=== PATIENT | female | born 1995 | race Hispanic/Latino ===

== ENCOUNTER → 2016-04-10 | Outpatient (REF) | payer OTHER ==
[~2016-04-10] MED LIST: PRENTAB55 PO
== END ==
LOC: M LAB REF 17:33
PROVIDERS: ATTEND Advanced Practice Midwife
DX: Z34.83 Encounter for supervision of other normal pregnancy, third trimester (principal)

== ENCOUNTER 2016-04-30 05:44 | Inpatient (IN) | payer OTHER ==
[2016-04-30] VITALS (36 sets, daily range): BP systolic 103–140; BP diastolic 57–95
[~2016-04-30] VITALS: Ht 157.5 cm; Wt 58.0 kg
[2016-04-30] MEDS ORDERED: LACTATED RINGER'S 1000 ML IV STA (06:07)
[2016-04-30] MEDS ORDERED: PENICILLIN G POTASSIUM IV 5 MU in D5W MINI-BAG PLUS 100 ML IV STA (06:07)
[2016-04-30] MEDS: LR 1,000 ML IV SCH ×2 (06:44→08:35)
[2016-04-30 07:09] LABS: MEAN CORPUSCULAR HEMOGLOBIN 24.9 pg (27.0-33.0); MEAN CORPUSCULAR HGB CONC 32.8 g/dl (32.0-36.5); MEAN CORPUSCULAR VOLUME 75.9 fl (80.0-96.0); RED CELL DISTRIBUTION WIDTH 16.4 % (11.5-14.5)
[2016-04-30] MEDS ORDERED: FENTANYL 2MCG/ML ROPIVACAINE 0.2% NACL 250 ML CADD As Ordered ONE (07:21)
[2016-04-30] MEDS ORDERED: SODIUM CHLORIDE NASAL 0.65% SPRAY BTL (OCEAN) PRN (07:45)
[2016-04-30] MEDS ORDERED: ONDANSETRON 4MG/2ML VIAL (J2405) IV PRN (08:45)
[2016-04-30] MEDS ORDERED: EPIDURAL/PCA KEYS XX PRN (08:45)
[2016-04-30] MEDS ORDERED: LACTATED RINGER'S 1000 ML IV PRN (08:45)
[2016-04-30] MEDS ORDERED: ePHEDrine SULFATE 25 MG/5 ML(5MG/ML) SYRINGE IV PRN (08:45)
[2016-04-30] MEDS ORDERED: diphenhydrAMINE INJ 50MG/ML VIAL (J1200) IV PRN (08:45)
[2016-04-30] MEDS ORDERED: FENTANYL/ROPIVACAINE/NACL CADD 250 ML EPIDURAL SCH (08:45)
[2016-04-30] MEDS ORDERED: EPIDURAL COMMENT XX SCH (08:45)
[2016-04-30] MEDS ORDERED: REFRIGERATOR IV KEYS XX PRN (08:45)
[2016-04-30] MEDS ORDERED: NALOXONE INJ 0.4 MG/1 ML VIAL (J2310) IV PRN (08:45)
[2016-04-30] MEDS ORDERED: OXYTOCIN 30 UNITS IN 0.9% NaCl 500ML IV BAG (J2590) As Ordered ONE (09:10)
--- NOTE | 2016-04-30 09:59 | HPE ---
DATE OF ADMISSION: 04/30/2016 20-year-old 1, estimated date of delivery 05/06/2016 here at 39 weeks-1 day with reports of contractions through the weekend, stronger since O200 this morning. Reports light bloody show. Denies loss of fluid. Fetus is active. Last normal menstrual period 07/31/2015 with an estimated date of delivery 05/06/2016. Sonogram at 11 weeks confirmed date of May 07, 2016. Anatomy scan within normal limits. Appropriate care. ALLERGIES: She is allergic to AZITHROMYCIN. PAST MEDICAL-SURGICAL HISTORY: 1. Systemic lupus erythematosus (SLE). 2. Non-Hodgkin's lymphoma. FAMILY HISTORY: Diabetes, epilepsy and Down syndrome. SOCIAL HISTORY: Single, partner is supportive. Denies tobacco, alcohol, drugs or abuse. OBJECTIVE: Prepregnancy weight 120, total weight gain 12 pounds. O positive, antibody negative, rubella immune, VDRL, hepatitis B, hepatitis C, HIV, gonorrhea: All negative. Chlamydia was positive in October, test of cure was negative in November. 1-hour glucose 90 and group B Streptococcus is positive. VITAL SIGNS: Vital signs are stable. She is crying with contractions. Heart rate is regular. Breathing hard with contractions. ABDOMEN: Abdomen is soft, gravid, contractions 2-4 minutes apart and moderate. heart 145, moderate variability with accelerations. Cervix per nursing exam 4-5 cm, -1 station. ASSESSMENT: 1. Primipara at 39 weeks. 2. Active labor. 3. Category 1 tracing. PLAN: Admit. The patient is requesting epidural augment as needed, anticipate normal spontaneous vaginal .
[2016-04-30] MEDS ORDERED: PENICILLIN G POTASSIUM IV 2.5 MU in D5W 100 ML IV SCH (10:00)
[2016-04-30] MEDS ORDERED: OXYTOCIN DRIP 30 UNITS in APPROPRIATE DILUENT 1 EA IV SCH (13:15)
[2016-04-30] MEDS ORDERED: METHYLERGONOVINE MALEATE 0.2 MG/ML VIAL (J2210) As Ordered ONE (14:10)
[2016-04-30] MEDS ORDERED: METHYLERGONOVINE MALEATE 0.2 MG/ML VIAL (J2210) IM STA (14:13)
[2016-04-30 14:27] LABS: CORD GAS ABE V -4.8; CORD GAS HCO3 V 23.4 MEQ/L; CORD GAS O2 SAT V 29.8 %; CORD GAS PCO2 V 55.8 mmHg; CORD GAS PH V 7.241 UNITS; CORD GAS PO2 V 16.9 mmHg; CORD GAS SBC V 18.9 MEQ/L; CORD GAS TCO2 V 25.1 MEQ/L
[2016-04-30 14:28] LABS: CORD GAS ABE A -6.7; CORD GAS HCO3 A 19.9 MEQ/L; CORD GAS O2 SAT A 64.4 %; CORD GAS PCO2 A 43.5 mmHg; CORD GAS PH A 7.279 UNITS; CORD GAS PO2 A 37.3 mmHg; CORD GAS SBC A 18.4 MEQ/L; CORD GAS TCO2 A 21.3 MEQ/L
[2016-04-30] MEDS ORDERED: RHOGAM 300 MCG (1500 IU) INJ (J2790) IM SCH (14:45)
[2016-04-30] MEDS ORDERED: MOM 30ML SUSPENSION UDC PO PRN (14:45)
[2016-04-30] MEDS ORDERED: MEASLES,MUMPS,RUBELLA VACCINE INJ (MMR-II) (90707) SC SCH (14:45)
[2016-04-30] MEDS ORDERED: ACETAMINOPHEN 500 MG TAB PO PRN (14:45)
[2016-04-30] MEDS ORDERED: DIBUCAINE 1% OINTMENT 30GM TOP PRN (14:45)
[2016-04-30] MEDS ORDERED: DOCUSATE SODIUM 100 MG CAP PO PRN (14:45)
[2016-04-30] MEDS ORDERED: ANUSOL HC CREAM 30GM TOP PRN (14:45)
--- NOTE | 2016-04-30 15:29 | DN ---
DATE OF SERVICE: 04/30/2016 Utilized epidural for coping. Artificial rupture of membranes. Clear fluid at 1107 hours. Fully dilated 1225 hours. Variable and occasional late decelerations treated with position change and oxygen via mask. Pitocin augmentation when presenting +3 station to increase uterine strength and urge to push. heart decelerations 80s to 90s. Viable female delivered right occiput anterior (RON) at 1400 hours. Spontaneous respirations with stimulation. Transitioned on maternal abdomen. Cord doubly clamped and cut once pulsations ceased. scores of 9 and 9. Cord gases were obtained. Placenta Ayala intact, but with shredded membranes at 1407 hours. Fundus firmed with massage and intravenous (IV) Pitocin bolus. Methergine 0.2 mg intramuscularly (IM) given for long trailing membranes. Perineum intact. Left labial abrasion repaired with interrupted 3-0 Vicryl Rapide suture. ESTIMATED BLOOD LOSS: 150 mL Sponge, sharp and instrument count correct. Infant weight is pending. Mom and baby doing well. Dr. Louis Dalal assisted with delivery. [facility]
[2016-04-30] MEDS: IBUPROFEN 800 MG TAB PO PRN (15:33)
[2016-04-30] MEDS: METHYLERGONOVINE MALEATE 0.2 MG TAB PO SCH (20:42)
[2016-04-30] MEDS: PRENATAL VITAMIN TAB PO SCH (20:42)
[2016-05-01] MEDS: METHYLERGONOVINE MALEATE 0.2 MG TAB PO SCH ×4 (03:00→21:04)
[2016-05-01] MEDS: IBUPROFEN 800 MG TAB PO PRN ×2 (03:06→17:30)
[2016-05-01 06:16] VITALS: BP 115/67
[2016-05-01] MEDS: PRENATAL VITAMIN TAB PO SCH (08:13)
[2016-05-01 18:00] VITALS: BP 115/61
[2016-05-02] MEDS: METHYLERGONOVINE MALEATE 0.2 MG TAB PO SCH ×2 (02:00→08:00)
[2016-05-02] MEDS: PRENATAL VITAMIN TAB PO SCH (09:15)
[2016-05-02 10:00] VITALS: BP 119/73
[2016-05-02 14:00] VITALS: BP 115/73
[2016-05-02] MEDS ORDERED: PRENTAB9 PO (17:29)
[2016-05-02] MEDS ORDERED: ACET50TA PO (17:29)
[2016-05-02] MEDS ORDERED: IBUP-1114 PO (17:29)
== END 2016-05-02 19:00 | disposition home or self-care (01) | DRG 560 ==
LOC: M LDO 05:44 → M LDI 06:06 → M OBS 16:40
PROVIDERS: ADMIT Obstetrics & Gynecology; ATTEND Obstetrics & Gynecology
PROC: 10E0XZZ Delivery of Products of Conception, External Approach (ICD-10-PCS; principal; 2016-04-30)
PROC: 0HQ9XZZ Repair Perineum Skin, External Approach (ICD-10-PCS; 2016-04-30)
PROC: 10907ZC Drainage of Amniotic Fluid, Therapeutic from Products of Conception, Via Natural or Artificial Opening (ICD-10-PCS; 2016-04-30)
DX: O26.893 Other specified pregnancy related conditions, third trimester (principal); M32.9 Systemic lupus erythematosus, unspecified; O99.824 Streptococcus B carrier state complicating childbirth; Z83.3 Family history of diabetes mellitus; Z37.0 Single live birth; Z3A.39 39 weeks gestation of pregnancy; Z82.79 Family history of other congenital malformations, deformations and chromosomal abnormalities; Z88.3 Allergy status to other anti-infective agents; Z82.0 Family history of epilepsy and other diseases of the nervous system; Z85.72 Personal history of non-Hodgkin lymphomas; O70.0 First degree perineal laceration during delivery

== ENCOUNTER → 2016-07-31 | Outpatient (CLI) | payer OTHER ==
[~2016-07-31] MED LIST changes: +ACET50TA PO; +AVEL1TAB PO; +IBUP-1114 PO; +PRENTAB9 PO
[2016-07-31 14:14] LABS: MEAN CORPUSCULAR HEMOGLOBIN 25.5 pg (27.0-33.0); MEAN CORPUSCULAR HGB CONC 32.8 g/dl (32.0-36.5); MEAN CORPUSCULAR VOLUME 77.6 fl (80.0-96.0); RED CELL DISTRIBUTION WIDTH 16.4 % (11.5-14.5)
[2016-07-31 14:40] LABS: FREE T4 1.05 NG/DL (0.78-1.33)
[2016-08-01 08:01] LABS: WHITE BLOOD COUNT 5.3 K/mm3 (4.0-10.0)
== END ==
LOC: M LAB 13:38
PROVIDERS: ATTEND Advanced Practice Midwife
DX: R63.4 Abnormal weight loss (principal)

== ENCOUNTER 2016-08-05 09:51 | Emergency (ER) | payer OTHER ==
[~2016-08-05] VITALS: Ht 157.5 cm; Wt 49.9 kg
[~2016-08-05 09:51] MED LIST changes: -AVEL1TAB PO
[2016-08-05] MEDS ORDERED: ALBUTEROL 90 MCG/ACT 8GM HFA INHALER INH ONE (10:45)
--- NOTE | 2016-08-05 11:15 | REP ---
Chest two views HISTORY: Cough Comparison: None The lungs are clear. The heart is normal in size. The pulmonary vasculature is normal in appearance. The bony structure is intact. IMPRESSION: No acute disease. Signed by Toby Cobb MD 08/05/2016 11:06 A
[2016-08-05] MEDS ORDERED: AVEL1TAB PO (11:21)
[2016-08-05 11:30] VITALS: BP 115/68
== END 2016-08-05 11:31 | disposition home or self-care (01) ==
LOC: M ED 10:26
DX: J20.9 Acute bronchitis, unspecified (principal); Z85.72 Personal history of non-Hodgkin lymphomas; Z88.1 Allergy status to other antibiotic agents

== ENCOUNTER 2016-11-07 09:44 | Emergency (ER) | payer OTHER ==
[~2016-11-07] VITALS: Ht 157.5 cm; Wt 47.1 kg
[~2016-11-07 09:44] MED LIST changes: +AVEL1TAB3 PO
[2016-11-07 09:45] VITALS: BP 131/75
[2016-11-07] MEDS ORDERED: NITR100C39 PO (10:19)
== END 2016-11-07 10:23 | disposition home or self-care (01) ==
LOC: M ED 09:44
DX: N39.0 Urinary tract infection, site not specified (principal)

== ENCOUNTER → 2016-11-12 | Outpatient (CLI) | payer OTHER ==
[~2016-11-12] MED LIST changes: +NITR100C39 PO
[2016-11-12 18:22] LABS: THYROXINE (T4) 11.6 UG/DL (6.0-11.6)
== END ==
LOC: M LAB 15:46
PROVIDERS: ATTEND Advanced Practice Midwife
DX: R63.4 Abnormal weight loss (principal)

== ENCOUNTER → 2016-11-29 | Outpatient (REF) | payer OTHER ==
[2016-11-29 16:12] LABS: MEAN CORPUSCULAR HEMOGLOBIN 24.8 pg (27.0-33.0); MEAN CORPUSCULAR HGB CONC 32.8 g/dl (32.0-36.5); MEAN CORPUSCULAR VOLUME 75.6 fl (80.0-96.0); RED CELL DISTRIBUTION WIDTH 15.4 % (11.5-14.5); WHITE BLOOD COUNT 6.8 K/mm3 (4.0-10.0)
== END ==
LOC: M SFHCPLAZ 14:29
PROVIDERS: ATTEND Family Medicine
DX: D64.9 Anemia, unspecified (principal)

== ENCOUNTER → 2016-11-30 | Outpatient (REF) | payer OTHER ==
[2016-11-30 13:22] LABS: MEAN CORPUSCULAR HEMOGLOBIN 24.9 pg (27.0-33.0); MEAN CORPUSCULAR HGB CONC 32.8 g/dl (32.0-36.5); MEAN CORPUSCULAR VOLUME 76.1 fl (80.0-96.0); RED CELL DISTRIBUTION WIDTH 15.4 % (11.5-14.5); WHITE BLOOD COUNT 4.5 K/mm3 (4.0-10.0)
== END ==
LOC: M SFHCPLAZ 11:29
PROVIDERS: ATTEND Family Medicine
DX: D64.9 Anemia, unspecified (principal)

== ENCOUNTER → 2016-12-03 | Outpatient (REF) | payer OTHER ==
[2016-12-03 12:42] LABS: PERCENT SATURATION 5.4 % (13.2-45.0)
== END ==
LOC: M SFHCPLAZ 10:34
PROVIDERS: ATTEND Family Medicine
DX: D64.9 Anemia, unspecified (principal)

== ENCOUNTER → 2017-04-18 | Outpatient (REF) | payer OTHER ==
[2017-04-18 21:03] LABS: CHLAMYDIA DNA AMPLIFICATION NEGATIVE (NEGATIVE); GC DNA AMPLIFICATION NEGATIVE (NEGATIVE)
== END ==
LOC: M LAB REF 18:43
DX: Z11.3 Encounter for screening for infections with a predominantly sexual mode of transmission (principal)

== ENCOUNTER → 2017-06-11 | Outpatient (REF) | payer OTHER ==
[2017-06-11 11:10] LABS: HEMATOCRIT 34.6 % (36.0-47.0); HEMOGLOBIN 11.2 g/dl (12.0-16.0); MEAN CORPUSCULAR HEMOGLOBIN 24.7 pg (27.0-33.0); MEAN CORPUSCULAR HGB CONC 32.4 g/dl (32.0-36.5); MEAN CORPUSCULAR VOLUME 76.2 fl (80.0-96.0); PLATELET COUNT, AUTOMATED 280 10^3/uL (150-450); RED BLOOD COUNT 4.54 10^6/uL (4.00-5.40); RED CELL DISTRIBUTION WIDTH 15.3 % (11.5-14.5); WHITE BLOOD COUNT 4.6 10^3/uL (4.0-10.0)
[2017-06-11 11:16] LABS: IRON (FE) 36 UG/DL (50-170)
[2017-06-11 11:16] LABS: FERRITIN 3 NG/ML (8-252)
== END ==
LOC: M SFHCPLAZ 07:53
DX: D50.9 Iron deficiency anemia, unspecified (principal)
CPT/HCPCS: 83540